=== PATIENT | female | born 1985 | race Two or more races ===

== ENCOUNTER 2017-04-04 11:03 | Outpatient (CLI) | payer OTHER | END 2017-04-04 11:17 | disposition home or self-care (01) | LOC: LAB 11:03 | DX: I10 Essential (primary) hypertension (principal); J11.1 Influenza due to unidentified influenza virus with other respiratory manifestations ==

== ENCOUNTER 2019-01-05 17:08 | Emergency (ER) | payer OTHER ==
[~2019-01-05] VITALS: Ht 160 cm; Wt 63.5 kg
[2019-01-05] MEDS ORDERED: KETO10TA2 PO (19:20)
== END 2019-01-05 19:25 | disposition home or self-care (01) ==
LOC: ER 17:08
DX: M94.0 Chondrocostal junction syndrome [Tietze] (principal)

== ENCOUNTER 2023-04-22 12:55 | Outpatient (CLI) | payer OTHER ==
[~2023-04-22 12:55] MED LIST: KETO10TA2 PO
== END 2023-04-22 12:56 | disposition home or self-care (01) ==
LOC: PRENATAL 12:55
PROVIDERS: ATTEND Obstetrics & Gynecology Maternal & Fetal Medicine
DX: O36.80X0 Pregnancy with inconclusive fetal viability, not applicable or unspecified (principal); Z36.82 Encounter for antenatal screening for nuchal translucency; O09.529 Supervision of elderly multigravida, unspecified trimester; O34.219 Maternal care for unspecified type scar from previous cesarean delivery; Z3A.11 11 weeks gestation of pregnancy

== ENCOUNTER 2023-04-24 08:00 | Emergency (ER) | payer OTHER ==
[~2023-04-24] VITALS: Ht 160 cm; Wt 70.3 kg
[2023-04-24 09:34] LABS: HEMATOCRIT 35.3 % (36.0-45.00); HEMOGLOBIN 12.1 g/dL (12.0-15.00); MEAN CELL VOLUME 84.3 fL (80.00-100.00); MEAN CORPUSCULAR HEMOGLOBIN 28.8 pg (27.00-32.0); MEAN CORPUSCULAR HGB CONC 34.2 g/dl (32.0-36.0); PLATELET COUNT 277 K/uL (150-450); RED BLOOD COUNT 4.18 M/uL (4.00-6.00); RED CELL DISTRIBUTION WIDTH 13.6 % (11.5-14.5)
[2023-04-24 09:51] LABS: URINE APPEARANCE Clear; URINE BILIRRUBIN Negative (NEGATIVE); URINE BLOOD NHT; URINE COLOR Yellow; URINE GLUCOSE Negative (NEGATIVE); URINE LEUKOCYTE Small; URINE NITRATE Negative; URINE PROTEIN Negative (NEGATIVE); URINE UROBILINOGEN 0.2 E.U./dl
[2023-04-24 09:55] LABS: URINE EPITHELIAL CELLS 71.1 uL (0.0-38.8); URINE WBC 37.4 uL (0.0-23.2)
[2023-04-24 10:16] LABS: URINE RBC 0.8 uL (0.0-20.8)
[2023-04-24 10:18] LABS: CREATININE SERUM 0.34 mg/dL (0.55-1.02); GFR 215.48; POTASSIUM 3.75 mEq/L (3.5-5.1)
== END 2023-04-24 11:21 | disposition home or self-care (01) ==
LOC: ER 08:01
PROVIDERS: General Practice
DX: O20.9 Hemorrhage in early pregnancy, unspecified (principal); O44.01 Complete placenta previa NOS or without hemorrhage, first trimester; Z3A.11 11 weeks gestation of pregnancy; Z88.2 Allergy status to sulfonamides; Z91.018 Allergy to other foods

== ENCOUNTER 2023-04-28 19:04 | Inpatient (IN) | payer OTHER ==
[~2023-04-28] VITALS: Ht 160 cm; Wt 70.3 kg
--- NOTE | 2023-04-28 19:09 | NUR ---
PTE EMBARAZADA DE 12 SEMANAS, ALERTA Y ORIENTADA X3 SE LE SOLITARIO S/V. PTE REFIERE QUE DESDE HACE ALEIDA HORA PRESENTA SANGRADO VAGINAL, PRESENTANDO COAGULOS DE SAJI. PTE REFIERE TENER SANGRADO COLOR GALDAMEZ BRILLNATE. SE UBICA EN OBSERVACION.
[2023-04-28 20:14] LABS: HEMOGLOBIN 12.5 g/dL (12.0-15.00); MEAN CELL VOLUME 82.5 fL (80.00-100.00); MEAN CORPUSCULAR HEMOGLOBIN 27.9 pg (27.00-32.0); MEAN CORPUSCULAR HGB CONC 33.8 g/dl (32.0-36.0); PLATELET COUNT 290 K/uL (150-450); RED BLOOD COUNT 4.48 M/uL (4.00-6.00); RED CELL DISTRIBUTION WIDTH 13.6 % (11.5-14.5)
--- NOTE | 2023-04-28 20:16 | NUR ---
SE ORIENTA A PTE SOBRE [place] MEDICO Y LA MISMA REFIERE ENTENDER. SE RECOLECTAN MUESTRAS DE LAB [facility] ORDEN MEDICA BAJO MEDIDAS ASEPTICA. PENDIENTE SONOGRAMA Y U/A
[2023-04-28 20:52] LABS: CALCIUM 9.6 mg/dL (8.5-10.1); CREATININE SERUM 0.5 mg/dL (0.55-1.02); GFR 138.08; POTASSIUM 3.87 mEq/L (3.5-5.1)
[2023-04-28 22:27] LABS: PH,URINE 6.5 (5.0-8.0); URINE APPEARANCE Clear; URINE BILIRRUBIN Negative (NEGATIVE); URINE BLOOD Large; URINE COLOR Yellow; URINE GLUCOSE Negative (NEGATIVE); URINE LEUKOCYTE Negative; URINE NITRATE Negative; URINE PROTEIN Negative (NEGATIVE); URINE UROBILINOGEN 0.2 E.U./dl
[2023-04-28 22:30] LABS: URINE BACTERIA 6.2 uL (0.0-1933); URINE EPITHELIAL CELLS 4.1 uL (0.0-38.8); URINE RBC 15.5 uL (0.0-20.8)
[2023-04-28] MEDS ORDERED: RINGERS SOLUTION,LACTATED 1,000 ML IV SCH (22:45)
[2023-04-29 07:41] LABS: HEMOGLOBIN 11.6 g/dL (12.0-15.00); MEAN CELL VOLUME 82.6 fL (80.00-100.00); MEAN CORPUSCULAR HEMOGLOBIN 28.1 pg (27.00-32.0); PLATELET COUNT 250 K/uL (150-450); RED BLOOD COUNT 4.12 M/uL (4.00-6.00); RED CELL DISTRIBUTION WIDTH 13.5 % (11.5-14.5)
[2023-04-29 08:12] LABS: BILIRUBIN TOTAL 0.26 mg/dL (0.3-1.2); CREATININE SERUM 0.35 mg/dL (0.55-1.02); GFR 208.4; POTASSIUM 3.89 mEq/L (3.5-5.1)
== END 2023-04-29 16:08 | disposition home or self-care (01) | DRG 833 ==
LOC: ER 19:04 → OB/GYN 22:41
PROVIDERS: General Practice; ADMIT Obstetrics & Gynecology; ATTEND Obstetrics & Gynecology
PROC: 4A1HXCZ Monitoring of Products of Conception, Cardiac Rate, External Approach (ICD-10-PCS; principal; 2023-04-28)
PROC: BU4CZZZ Ultrasonography of Uterus and Ovaries (ICD-10-PCS; 2023-04-28)
PROC: BY49ZZZ Ultrasonography of First Trimester, Single Fetus (ICD-10-PCS; 2023-04-29)
PROC: BU4CZZZ Ultrasonography of Uterus and Ovaries (ICD-10-PCS; 2023-04-29)
DX: O46.8X1 Other antepartum hemorrhage, first trimester (principal); O36.80X0 Pregnancy with inconclusive fetal viability, not applicable or unspecified; O26.851 Spotting complicating pregnancy, first trimester; Z3A.12 12 weeks gestation of pregnancy; Z20.822 Contact with and (suspected) exposure to COVID-19

== ENCOUNTER 2023-09-19 08:04 | Outpatient (CLI) | payer OTHER | END 2023-09-19 08:07 | disposition home or self-care (01) | LOC: PRENATAL 08:04 | PROVIDERS: ATTEND Obstetrics & Gynecology Maternal & Fetal Medicine | DX: O26.843 Uterine size-date discrepancy, third trimester (principal); O36.8130 Decreased fetal movements, third trimester, not applicable or unspecified; O09.523 Supervision of elderly multigravida, third trimester; O34.219 Maternal care for unspecified type scar from previous cesarean delivery; Z3A.32 32 weeks gestation of pregnancy ==

== ENCOUNTER 2023-10-09 19:38 | Outpatient (CLI) | payer OTHER ==
[2023-10-09 18:18] VITALS: BP 102/65
[2023-10-09] MEDS ORDERED: PRENATAL VITAM1 EAC4 PO (19:44)
[2023-10-09] MEDS ORDERED: ADULT LOW DOSE81 M1 PO (19:44)
[2023-10-09] MEDS ORDERED: DIPHENHYDRAMINE HCL 50 MG/ML VIAL 1ML IV PRN (20:00)
[2023-10-09] MEDS ORDERED: RINGERS SOLUTION,LACTATED 1,000 ML IV SCH (20:00)
[2023-10-09 20:40] LABS: HEMATOCRIT 32.3 % (36.0-45.00); HEMOGLOBIN 10.4 g/dL (12.0-15.00); MEAN CORPUSCULAR HEMOGLOBIN 26.5 pg (27.00-32.0); MEAN CORPUSCULAR HGB CONC 32.4 g/dl (32.0-36.0); PLATELET COUNT 243 K/uL (150-450); RED BLOOD COUNT 3.94 M/uL (4.00-6.00); RED CELL DISTRIBUTION WIDTH 13.9 % (11.5-14.5)
[2023-10-09 20:41] LABS: URINE APPEARANCE Cloudy; URINE BILIRRUBIN Negative (NEGATIVE); URINE BLOOD Negative; URINE COLOR Yellow; URINE GLUCOSE Negative (NEGATIVE); URINE KETONE 15 (NEGATIVE); URINE LEUKOCYTE Large; URINE NITRATE Negative; URINE PROTEIN Negative (NEGATIVE); URINE UROBILINOGEN 0.2 E.U./dl
[2023-10-09 20:44] LABS: URINE RBC 4.1 uL (0.0-20.8); URINE WBC 26.2 uL (0.0-23.2)
[2023-10-09 20:48] VITALS: BP 106/66
[2023-10-09 21:02] LABS: ALBUMIN 2.8 gm/dL (3.4-5.0); BILIRUBIN TOTAL 0.22 mg/dL (0.3-1.2); CALCIUM 8.8 mg/dL (8.5-10.1); CREATININE SERUM 0.37 mg/dL (0.55-1.02); GFR 195.45; GLOBULINA 3.4 G/DL (2.4-3.5); POTASSIUM 3.88 mEq/L (3.5-5.1); TOTAL PROTEIN 6.2 gm/dL (6.4-8.2)
[2023-10-09 21:07] LABS: URINE YEAST FEW /hpf
[2023-10-09] MEDS ORDERED: CEFTRIAXONE SODIUM 1,000 MG VIAL IV ONE (21:45)
[2023-10-09 23:57] VITALS: BP 94/53
[2023-10-10 03:44] VITALS: BP 96/60
[2023-10-10 06:35] VITALS: BP 91/55; O2SAT 100
[2023-10-10 14:08] VITALS: BP 97/62
== END 2023-10-10 14:10 | disposition home or self-care (01) ==
LOC: OBS/DEL 19:38
PROVIDERS: ATTEND Obstetrics & Gynecology
DX: O47.03 False labor before 37 completed weeks of gestation, third trimester (principal); Z3A.35 35 weeks gestation of pregnancy; O26.849 Uterine size-date discrepancy, unspecified trimester; O36.8199 Decreased fetal movements, unspecified trimester, other fetus

== ENCOUNTER 2023-10-29 15:32 | Inpatient (IN) | payer OTHER ==
[~2023-10-29] VITALS: Ht 160 cm; Wt 82.6 kg
[2023-10-29 12:30] LABS: HEMATOCRIT 34.2 % (36.0-45.00); HEMOGLOBIN 11.4 g/dL (12.0-15.00); MEAN CELL VOLUME 80.8 fL (80.00-100.00); MEAN CORPUSCULAR HEMOGLOBIN 27.1 pg (27.00-32.0); MEAN CORPUSCULAR HGB CONC 33.5 g/dl (32.0-36.0); PLATELET COUNT 236 K/uL (150-450); RED BLOOD COUNT 4.23 M/uL (4.00-6.00); RED CELL DISTRIBUTION WIDTH 15.9 % (11.5-14.5)
[2023-10-29 12:36] LABS: INR 0.99; PARTIAL THROMBOPLASTIN TIME 29.1 SECONDS (22.0-34.0); PROTHROMBIN TIME 10.8 SECONDS (9.0-11.5)
[2023-10-29 13:10] LABS: ALBUMIN 2.9 gm/dL (3.4-5.0); BILIRUBIN TOTAL 0.27 mg/dL (0.3-1.2); CALCIUM 9.2 mg/dL (8.5-10.1); CREATININE SERUM 0.45 mg/dL (0.55-1.02); GFR 155.93; GLOBULINA 3.6 G/DL (2.4-3.5); POTASSIUM 4.14 mEq/L (3.5-5.1); TOTAL PROTEIN 6.5 gm/dL (6.4-8.2)
[~2023-10-29 15:32] MED LIST changes: +ADULT LOW DOSE81 M1 PO; +PRENATAL VITAM1 EAC4 PO
[2023-11-04] MEDS ORDERED: IRON325 MG PO (07:54)
[2023-11-04 07:56] VITALS: BP 104/66
[2023-11-04] MEDS ORDERED: CEFAZOLIN SODIUM 1,000 MG VIAL ONE (09:59)
[2023-11-04] MEDS ORDERED: OXYTOCIN 10 UNITS/ML VIAL ONE (10:35)
[2023-11-04] MEDS ORDERED: ERYTHROMYCIN BASE OPHT 1GM EACH TUBE OP ONE (10:35)
[2023-11-04] MEDS ORDERED: MEPERIDINE HCL/PF 50 MG/ML VIAL IM PRN (12:00)
[2023-11-04] MEDS ORDERED: PROMETHAZINE HCL 50 MG/ML AMPUL IM PRN (12:00)
[2023-11-04] MEDS ORDERED: MORPHINE SULFATE 4 MG/ML VIAL IV ONE (13:35)
[2023-11-04] MEDS ORDERED: KETOROLAC TROMETHAMINE 30 MG VIAL ONE (15:40)
[2023-11-04] MEDS ORDERED: KETOROLAC TROMETHAMINE 30 MG VIAL IV SCH (17:00)
[2023-11-04 19:58] VITALS: BP 107/68
[2023-11-05] VITALS: BP 108/71
[2023-11-05 08:00] VITALS: BP 95/60
[2023-11-05] MEDS ORDERED: PNV,CALCIUM 72/IRON/FOLIC ACID 1 TAB TABLET PO SCH (08:00)
[2023-11-05] MEDS ORDERED: OxyCODONE HCL/APAP UD (PERCOCET) PO PRN (08:00)
[2023-11-05] MEDS ORDERED: SIMETHICONE 125 MG CAPSULE PO SCH (08:00)
[2023-11-05 08:38] LABS: HEMOGLOBIN 10.1 g/dL (12.0-15.00); MEAN CELL VOLUME 83.3 fL (80.00-100.00); MEAN CORPUSCULAR HGB CONC 33.6 g/dl (32.0-36.0); PLATELET COUNT 238 K/uL (150-450); RED CELL DISTRIBUTION WIDTH 16.4 % (11.5-14.5)
[2023-11-05] MEDS ORDERED: DOCUSATE SODIUM 100MG CAP PO SCH (09:00)
[2023-11-05] MEDS ORDERED: IBUprofen 800 MG TABLET PO SCH (17:00)
[2023-11-05 19:34] VITALS: BP 100/68
[2023-11-06] VITALS: BP 106/70
[2023-11-06 08:00] VITALS: BP 121/70
== END 2023-11-06 15:58 | disposition home or self-care (01) | DRG 788 ==
LOC: OB/GYN 11-04 05:40 → O/R 11-04 05:40 → LDR 11-04 11:23 → OB/GYN 11-04 13:34 → LDR 11-04 15:00 → OB/GYN 11-06 15:58
PROVIDERS: ADMIT Obstetrics & Gynecology; ATTEND Obstetrics & Gynecology
PROC: 4A1HXCZ Monitoring of Products of Conception, Cardiac Rate, External Approach (ICD-10-PCS; 2023-11-04)
PROC: 10D00Z1 Extraction of Products of Conception, Low, Open Approach (ICD-10-PCS; principal; 2023-11-04 15:00)
DX: O34.211 Maternal care for low transverse scar from previous cesarean delivery (principal); O99.824 Streptococcus B carrier state complicating childbirth; Z3A.38 38 weeks gestation of pregnancy; Z37.0 Single live birth; Z20.822 Contact with and (suspected) exposure to COVID-19